=== PATIENT | male | born 1990 | race African-American/Black ===

== ENCOUNTER 2019-09-24 15:53 | Emergency (ER) | payer BC ==
[~2019-09-24] VITALS: Ht 188 cm; Wt 104.3 kg
[2019-09-24 17:13] LABS: ABSOLUTE LYMPHOCYTES 1.5 thou/uL (0.8-5.3); ABSOLUTE MONOCYTES 0.3 thou/uL (0.0-1.2); ABSOLUTE NEUTROPHILS 2.8 thou/uL (1.6-8.1); BASOPHILS 0.8 %; EOSINOPHILS 0.9 %; HEMATOCRIT 42.3 % (42.0-52.0); HEMOGLOBIN 14.2 gm/dL (14.0-18.0); LYMPHOCYTES 33.2 %; MCH 27.5 pg (26.0-34.0); MCHC 33.5 g/dL (28.0-37.0); MCV 81.9 fL (80.0-100.0); MPV 8.8 fl. (7.2-11.1); NUCLEATED RBCS 0 /100WBC; PLATELET COUNT* 209 thou/uL (150-400); POLYS 59.1 %; RBC 5.17 mil/uL (4.50-6.00); RDW-CV 13.6 % (10.5-14.5); WBC 4.7 thou/uL (4.0-11.0)
[2019-09-24 17:22] LABS: CALCIUM 9.3 mg/dL (8.5-10.1); CREATININE 1.3 mg/dL (0.6-1.3); POTASSIUM 3.8 mmol/L (3.5-5.1)
[2019-09-24 17:33] LABS: ALBUMIN 4.1 g/dL (3.4-5.0); MAGNESIUM 1.8 mg/dL (1.8-2.4); TOTAL BILIRUBIN 0.5 mg/dL (<0.1-1.0); TOTAL PROTEIN 7.8 g/dL (6.4-8.2)
[2019-09-24] MEDS ORDERED: PROTONIX40 M2 PO (17:39)
[2019-09-24 17:49] VITALS: BP 149/74
--- NOTE | 2019-09-25 10:31 | EKG ---
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
== END 2019-09-24 17:49 | disposition home or self-care (01) ==
LOC: M.ERS 15:53
PROVIDERS: Emergency Medicine Emergency Medical Services
DX: R07.89 Other chest pain (principal); R10.13 Epigastric pain

== ENCOUNTER 2021-07-13 15:01 | Emergency (ER) | payer BC ==
[~2021-07-13] VITALS: Ht 193 cm; Wt 108.9 kg
[~2021-07-13 15:01] MED LIST: PROTONIX40 M2 PO
[2021-07-13 18:27] LABS: HEMOGLOBIN 14.1 gm/dL (14.0-18.0); MCH 27.5 pg (26.0-34.0); MCHC 33.4 g/dL (28.0-37.0); MCV 82.1 fL (80.0-100.0); MPV 7.8 fl. (7.2-11.1); RBC 5.12 mil/uL (4.50-6.00); WBC 4.8 thou/uL (4.0-11.0)
[2021-07-13 18:40] LABS: CALCIUM 9.1 mg/dL (8.5-10.1); CREATININE 1.2 mg/dL (0.6-1.3); POTASSIUM 3.9 mmol/L (3.5-5.1)
[2021-07-13] MEDS ORDERED: TESSALON PERLE100 MG PO (18:41)
[2021-07-13 19:15] VITALS: BP 138/87
--- NOTE | 2021-07-14 10:33 | EKG ---
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 07/14/21 1033 1505 1505 Saud Barker MD, FAC /EPI
== END 2021-07-13 19:15 | disposition home or self-care (01) ==
LOC: M.ERS 15:01
PROVIDERS: Emergency Medicine Emergency Medical Services
DX: U07.1 COVID-19 (principal); R00.2 Palpitations; R19.7 Diarrhea, unspecified; R42 Dizziness and giddiness